=== PATIENT | female | born 1950 | race Caucasian/White ===

== ENCOUNTER → 2020-03-06 | Outpatient (CLI) | payer MEDICARE ==
[~2020-03-06] MED LIST: REGADENOSON 0.4 MG/5 ML SYRINGE ONE
== END | disposition home or self-care (01) ==
LOC: CVU 06:37
PROVIDERS: ATTEND Internal Medicine Cardiovascular Disease
DX: Z01.810 Encounter for preprocedural cardiovascular examination (principal); I08.8 Other rheumatic multiple valve diseases; R00.2 Palpitations
CPT/HCPCS: 78452; 93017; 93306; 93356; A9502; J2785

== ENCOUNTER 2020-03-26 14:29 | Outpatient (CLI) | payer MEDICARE | END 2020-03-26 23:59 | disposition home or self-care (01) | LOC: CARD 14:29 | PROVIDERS: ATTEND Internal Medicine Cardiovascular Disease | DX: R06.02 Shortness of breath (principal) | CPT/HCPCS: 94060; 94726; 94729 ==

== ENCOUNTER → 2020-12-17 | Outpatient (CLI) | payer MEDICARE | END | disposition home or self-care (01) | LOC: STAR 08:21 | PROVIDERS: ATTEND Obstetrics & Gynecology Female Pelvic Medicine and Reconstructive Surgery | DX: Z01.818 Encounter for other preprocedural examination (principal); R10.2 Pelvic and perineal pain; N81.2 Incomplete uterovaginal prolapse; N39.3 Stress incontinence (female) (male); Z20.822 Contact with and (suspected) exposure to COVID-19 | CPT/HCPCS: 93005; U0003; U0005 ==

== ENCOUNTER 2021-04-08 12:46 | Outpatient (CLI) | payer MEDICARE | END 2021-04-08 23:59 | disposition home or self-care (01) | LOC: STAR 12:46 | PROVIDERS: ATTEND Obstetrics & Gynecology Female Pelvic Medicine and Reconstructive Surgery | DX: Z01.818 Encounter for other preprocedural examination (principal); R10.2 Pelvic and perineal pain; N81.2 Incomplete uterovaginal prolapse; N39.3 Stress incontinence (female) (male); R94.31 Abnormal electrocardiogram [ECG] [EKG] | CPT/HCPCS: 93005 ==